=== PATIENT | female | born 1990 | race Caucasian/White ===

== ENCOUNTER 2017-05-24 20:59 | Emergency (ER) | payer MEDICAID, OTHER ==
[~2017-05-24] VITALS: Ht 162.6 cm; Wt 76.4 kg
[2017-05-24 21:04] VITALS: BP 133/90; PULSE 77; RESP 18; TEMP 97.6; O2SAT 99
[2017-05-24 21:19] VITALS: BP 114/57; PULSE 75; RESP 16; O2SAT 99
[2017-05-24 22:20] LABS: AUTOMATED NEUTROPHIL # 5.9 TH/MM3 (1.8-7.7); BASOPHIL % 0.4 % (0.0-2.0); EOSINOPHIL # 0.1 TH/MM3 (0-0.4); EOSINOPHIL % 0.7 % (0.0-4.0); HEMATOCRIT 38.5 % (35.0-46.0); HEMO FLAGS DIFF FINAL; LYMPH % 17.9 % (9.0-44.0); LYMPHOCYTE # 1.4 TH/MM3 (1.0-4.8); MEAN CELL VOLUME 82.5 FL (80.0-100.0); MEAN CORPUSCULAR HEMOGLOBIN 27.1 PG (27.0-34.0); MEAN CORPUSCULAR HGB CONC 32.9 % (32.0-36.0); PLATELET COUNT 209 TH/MM3 (150-450); RED BLOOD COUNT 4.68 MIL/MM3 (4.00-5.30); RED CELL DISTRIBUTION WIDTH 13.5 % (11.6-17.2); WHITE BLOOD COUNT 7.8 TH/MM3 (4.0-11.0)
[2017-05-24 22:28] LABS: POTASSIUM 3.4 MEQ/L (3.5-5.1)
[2017-05-24 22:31] LABS: BICARBONATE 23.4 MEQ/L (21.0-32.0)
[2017-05-24 22:57] VITALS: BP_SYST 107; BP_SYST 97; BP_DIAS 48; BP_DIAS 63; RESP 18; RESP 20
[2017-05-24 23:13] LABS: BLOOD, URINE NEG (NEG); GLUCOSE,URINE NEG (NEG); KETONE, URINE NEG (NEG); NITRITE,URINE NEG (NEG)
[2017-05-24 23:22] LABS: BACTERIA, URINE OCC /hpf; COMMENT (UR) CULT NOT INDICATED; CULTURE IF INDICATED CULT NOT INDICATED; RBC, URINE 0-3 /hpf (0-3); SQUAMOUS EPITHELIAL CELL URINE > 8 /hpf (0-5); URINE COLOR YELLOW (YELLW/STRAW)
[2017-05-24 23:52] LABS: TOTAL BILIRUBIN ADULT 0.2 MG/DL (0.2-1.0)
[2017-05-25 00:03] LABS: INDIRECT BILIRUBIN 0.1 MG/DL (0.0-0.8)
[2017-05-25] MEDS ORDERED: MACR100C2 PO (00:37)
--- NOTE | 2017-05-25 00:37 | PD ---
HPI Chief Complaint: Headache Time Seen by Provider: 21:59 Travel History International Travel<30 days: No Contact w/Intl Traveler<30days: No Traveled to known affect area: No History of Present Illness HPI 26-year-old female presents to the emergency department by private transportation for complaint of headache times one day half days. Headache began around 2 yesterday. Headache is not sudden onset not thunderclap not worst ever. Patient denies any fever sinus pressure drainage vomiting neck pain or recent respiratory illness. Patient states she is 11 weeks is 1 para 0 AB 0. Patient was recently seen in the emergency department here and diagnosed with intrauterine . 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 Patient did not contact her manager of environmental services regarding headache. Patient is taking acetaminophen. Headache is 8/10 in intensity. Patient's had no vomiting. Patient has had some nausea. Patient's had no neck stiffness or sinus pressure drainage or sore throat or visual disturbance. Patient also denies any upper extremity or lower extremity numbness tingling or weakness. Patient's had no vaginal bleeding or vaginal discharge. Patient's last acetaminophen was yesterday. Grandmother blood bedside was concerned about her blood sugar because a friend's glucometer identified her blood sugar to be 129. Patient's had no urinary frequency polyuria polydipsia or polyphagia. 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7; Ab0; nursing notes reviewed Cardiovascular Problems: Yes (PACEMAKER) Diminished Hearing: No Tetanus Vaccination: Unknown Influenza Vaccination: No ?: LMP: 19 : 1 Para: 0 Miscarriage: 0 : 0 Past Surgical History Cardiac Surgery: Yes (PACEMAKER INSERTED WHEN PT WAS 7) Pacemaker: Yes Social History Alcohol Use: No Tobacco Use: No Substance Use: No Allergies-Medications (Allergen,Severity, Reaction): Coded Allergies: adhesive (Unverified Allergy, Intermediate, Hives, 05/24/17) morphine (Unverified Allergy, Intermediate, Hives, 05/24/17) Reported Meds & Prescriptions Reported Meds & Active Scripts Active Macrobid (Nitrofurantoin Monoh/Nitrofur Macro) 100 Mg Cap 100 Mg PO BID 3 Days Review of Systems Except as stated in HPI: all other systems reviewed are Neg General / Constitutional: No: Fever, Chills HENT: Positive: Headaches, No: Congestion, Neck Stiffness, Neck Pain Cardiovascular: No: Chest Pain or Discomfort Respiratory: No: Shortness of Breath Gastrointestinal: No: Nausea, Vomiting Genitourinary: Positive: Urgency, No: Frequency, Dysuria, Pelvic Pain, Flank Pain, Discharge, Vaginal Bleeding Skin: No Rash Neurologic: Positive: Headache, No: Weakness Psychiatric: No: Anxiety Hematologic/Lymphatic: No: Lymph Node Enlargement Physical Exam Narrative GENERAL: Well-developed well-nourished female in no acute distress no respiratory distress SKIN: Warm and dry. HEAD: Atraumatic. Normocephalic. EYES: Pupils equal and round. No scleral icterus. No injection or drainage. ENT: No nasal bleeding or discharge. Mucous membranes pink and moist. NECK: Trachea midline. No JVD. No meningismus no nuchal rigidity. CARDIOVASCULAR: Regular rate and rhythm. RESPIRATORY: No accessory muscle use. Clear to auscultation. Breath sounds equal bilaterally. GASTROINTESTINAL: Abdomen soft, non-tender, nondistended. Hepatic and splenic margins not palpable. MUSCULOSKELETAL: Extremities without clubbing, cyanosis, or edema. No obvious deformities. NEUROLOGICAL: Awake and alert. No obvious cranial nerve deficits. Motor grossly within normal limits. Five out of 5 muscle strength in the arms and legs. Normal speech. PSYCHIATRIC: Appropriate mood and affect; insight and judgment normal. Data Data Last Documented VS Vital Signs Date Time Temp Pulse Resp B/P (MAP) Pulse Ox O2 Delivery O2 Flow Rate FiO2 05/24/17 22:57 74 18 107/63 (78) 78 20 97/48 (64) 05/24/17 21:19 99 Room Air 05/24/17 21:04 97.6 Orders Orders ^ Saline Lock (05/24/17 21:59) Urinalysis - C+S If Indicated (05/24/17 21:59) Orthostatic Vital Signs (05/24/17 21:59) Complete Blood Count With Diff (05/24/17 21:59) Basic Metabolic Panel (Bmp) (05/24/17 21:59) Hepatic Functional Panel (05/24/17 22:15) Sodium Chlor 0.9% 1000 Ml Inj (Ns 1000 M (05/25/17 00:45) Nitrofurantoin Monohyd Macrocr (Macrobid (05/25/17 00:45) Labs Laboratory Tests Test 05/24/17 22:15 05/24/17 22:33 White Blood Count 7.8 TH/MM3 Red Blood Count 4.68 MIL/MM3 Hemoglobin 12.7 GM/DL Hematocrit 38.5 % Mean Corpuscular Volume 82.5 FL Mean Corpuscular Hemoglobin 27.1 PG Mean Corpuscular Hemoglobin Concent 32.9 % Red Cell Distribution Width 13.5 % Platelet Count 209 TH/MM3 Mean Platelet Volume 9.3 FL Neutrophils (%) (Auto) 76.0 % Lymphocytes (%) (Auto) 17.9 % Monocytes (%) (Auto) 5.0 % Eosinophils (%) (Auto) 0.7 % Basophils (%) (Auto) 0.4 % Neutrophils # (Auto) 5.9 TH/MM3 Lymphocytes # (Auto) 1.4 TH/MM3 Monocytes # (Auto) 0.4 TH/MM3 Eosinophils # (Auto) 0.1 TH/MM3 Basophils # (Auto) 0.0 TH/MM3 CBC Comment DIFF FINAL Differential Comment Blood Urea Nitrogen 10 MG/DL Creatinine 0.56 MG/DL Random Glucose 78 MG/DL Total Protein 7.0 GM/DL Albumin 2.8 GM/DL Calcium Level 7.8 MG/DL Alkaline Phosphatase 83 U/L Aspartate Amino Transf (AST/SGOT) 15 U/L Alanine Aminotransferase (ALT/SGPT) 36 U/L Total Bilirubin 0.2 MG/DL Direct Bilirubin 0.1 MG/DL Sodium Level 136 MEQ/L Potassium Level 3.4 MEQ/L Chloride Level 105 MEQ/L Carbon Dioxide Level 23.4 MEQ/L Anion Gap 8 MEQ/L Estimat Glomerular Filtration Rate 133 ML/MIN Indirect Bilirubin 0.1 MG/DL Urine Color YELLOW Urine Turbidity SLIGHT Urine pH 7.0 Urine Specific [place] 1.012 Urine Protein NEG mg/dL Urine Glucose (UA) NEG mg/dL Urine Ketones NEG mg/dL Urine Occult Blood NEG Urine Nitrite NEG Urine Bilirubin NEG Urine Leukocyte Esterase SMALL Urine RBC 0-3 /hpf Urine WBC 6-8 /hpf Urine Squamous Epithelial Cells > 8 /hpf Urine Bacteria OCC /hpf Microscopic Urinalysis Comment CULT NOT INDICATED MDM Medical Decision Making Medical Screen Exam Complete: Yes Emergency Medical Condition: Yes Medical Record Reviewed: Yes Differential Diagnosis Cephalgia, tension headache, viral syndrome, UTI, , meningitis Narrative Course IV access obtained specimens collected and sent for resulting Patient administered acetaminophen Patient resting comfortably voicing no concerns or complaints Patient identified to have low blood pressure and given a liter of normal saline Patient is not a candidate that help syndrome or preeclampsia at 11 weeks but is encouraged to increase fluid hydration and follow-up with her observation times one day patient is aware of recommendations also identified to have abnormal urinalysis although concerning for contaminated specimen will sent for culture and sensitivity and will place on 3 days of Macrobid Diagnosis Primary Impression: Headache Qualified Codes: G44.209 - Tension-type headache, unspecified, not intractable Additional Impressions: Cystitis Qualified Codes: Z3A.11 - 11 weeks gestation of Referrals: Supervisor [employer]acing call for appointment Patient Instructions: General Instructions Med/Other Pt SpecificInfo: Prescription(s) given Scripts Nitrofurantoin Monohydrate Macrocrystals (Macrobid) 100 Mg Cap 100 MG PO BID for Infection for 3 Days, #6 CAP 0 Refills Prov: Staci Cormier MD 05/25/17 Disposition: 01 DISCHARGE HOME Staci Cormier MD May 25, 2017 00:37
[2017-05-25] MEDS ORDERED: NITROFURANTOIN MONOHYD MACROCR 100 MG CAP PO ONE (00:45)
[2017-05-25] MEDS ORDERED: SODIUM CHLOR 0.9% 1000 ML INJ 1,000 ML IV ONE (00:45)
[2017-05-25 01:01] VITALS: BP 109/64; PULSE 75; RESP 16; O2SAT 98
[2017-05-25 01:39] VITALS: BP 110/66; TEMP 98
[2017-06-07] MEDS ORDERED: ZITHTAB PO (14:09)
[2017-06-07] MEDS ORDERED: METR-1 PO (14:09)
== END 2017-05-25 01:47 | disposition home or self-care (01) ==
LOC: PHED 20:59
DX: O26.891 Other specified pregnancy related conditions, first trimester (principal); G44.209 Tension-type headache, unspecified, not intractable; O23.11 Infections of bladder in pregnancy, first trimester; Z95.0 Presence of cardiac pacemaker; Z86.79 Personal history of other diseases of the circulatory system; Z3A.11 11 weeks gestation of pregnancy
CPT/HCPCS: 80048; 80076; 81001; 85025; 96360; 99284; J7030

== ENCOUNTER 2017-07-24 10:54 | Emergency (ER) | payer MEDICAID, OTHER ==
[~2017-07-24] VITALS: Ht 162.6 cm; Wt 78.0 kg
[2017-07-24 10:55] VITALS: BP 111/61; PULSE 81; RESP 18; TEMP 98; O2SAT 100
[2017-07-24 13:00] VITALS: BP 102/55; PULSE 74; RESP 22; O2SAT 100
--- NOTE | 2017-07-24 13:00 | PD ---
HPI Chief Complaint: Cardiac Complaint Time Seen by Provider: 12:25 Travel History International Travel<30 days: No Contact w/Intl Traveler<30days: No Traveled to known affect area: No History of Present Illness HPI The patient was seen and examined in the presence of the nurse. This patient is 20 weeks and had a pacemaker placed at age 7. She developed some epigastric pain yesterday at 3 PM. She ate dinner and it didn't affect her pain at all. Today she comes for evaluation. No vomiting or diarrhea or fever. She is not short of breath. Symptoms severity is moderate. No alleviating factors. No exacerbating factors. Denies vaginal bleeding or discharge. PFSH Past Medical History Cardiovascular Problems: Yes (PACEMAKER, HEART MURMUR) Diminished Hearing: No Tetanus Vaccination: Unknown Influenza Vaccination: No ?: LMP: 03/04/17 : 1 Para: 0 Miscarriage: 0 : 0 Past Surgical History Cardiac Surgery: Yes (PACEMAKER INSERTED WHEN PT WAS 7) Pacemaker: Yes Social History Alcohol Use: No Tobacco Use: No Substance Use: No Allergies-Medications (Allergen,Severity, Reaction): Coded Allergies: adhesive (Unverified Allergy, Intermediate, Hives, 07/24/17) morphine (Unverified Allergy, Intermediate, Hives, 07/24/17) Reported Meds & Prescriptions Reported Meds & Active Scripts Active No Active Prescriptions or Reported Medications Review of Systems General / Constitutional: No: Fever Eyes: No: Visual changes HENT: No: Headaches Cardiovascular: No: Chest Pain or Discomfort Respiratory: No: Shortness of Breath Gastrointestinal: Positive: Abdominal Pain Genitourinary: No: Dysuria Musculoskeletal: No: Pain Skin: No Rash Neurologic: No: Weakness Psychiatric: No: Depression Endocrine: No: Polydipsia Hematologic/Lymphatic: No: Easy Bruising Physical Exam Narrative GENERAL: Well-nourished, well-developed patient in no apparent distress. SKIN: Focused skin assessment reveals no rash and nodules. Skin is Warm and dry. HEAD: Atraumatic. Normocephalic. EYES: Pupils equal and round. No scleral icterus. No injection or drainage. ENT: No nasal bleeding or discharge. Mucous membranes pink and moist. NECK: Trachea midline. No JVD. CARDIOVASCULAR: Regular rate and rhythm. No murmur appreciated. RESPIRATORY: No accessory muscle use. Clear to auscultation. Breath sounds equal bilaterally. GASTROINTESTINAL: Abdomen soft, mild epigastric tenderness without rebound or guarding, nondistended. Hepatic and splenic margins not palpable. MUSCULOSKELETAL: No obvious deformities. No clubbing. No cyanosis. No edema. NEUROLOGICAL: Awake and alert. No obvious cranial nerve deficits. Motor grossly within normal limits. Normal speech. PSYCHIATRIC: Appropriate mood and affect; insight and judgment normal. Data Data Last Documented VS Vital Signs Date Time Temp Pulse Resp B/P (MAP) Pulse Ox O2 Delivery O2 Flow Rate FiO2 07/24/17 14:00 74 20 109/75 (86) 100 Room Air 07/24/17 10:55 98.0 Orders Orders Electrocardiogram (07/24/17 ) Ckmb (Isoenzyme) Profile (07/24/17 12:18) Complete Blood Count With Diff (07/24/17 12:18) Comprehensive Metabolic Panel (07/24/17 12:18) Magnesium (Mg) (07/24/17 12:18) Prothrombin Time / Inr (Pt) (07/24/17 12:18) Act Partial Throm Time (Ptt) (07/24/17 12:18) Troponin I (07/24/17 12:18) Lipase (07/24/17 12:18) Us Abdomen Gallbladder (07/24/17 ) Labs Laboratory Tests Test 07/24/17 13:00 White Blood Count 8.6 TH/MM3 Red Blood Count 4.77 MIL/MM3 Hemoglobin 13.1 GM/DL Hematocrit 39.5 % Mean Corpuscular Volume 82.8 FL Mean Corpuscular Hemoglobin 27.4 PG Mean Corpuscular Hemoglobin Concent 33.1 % Red Cell Distribution Width 14.4 % Platelet Count 285 TH/MM3 Mean Platelet Volume 9.5 FL Neutrophils (%) (Auto) 81.4 % Lymphocytes (%) (Auto) 13.8 % Monocytes (%) (Auto) 4.1 % Eosinophils (%) (Auto) 0.5 % Basophils (%) (Auto) 0.2 % Neutrophils # (Auto) 7.0 TH/MM3 Lymphocytes # (Auto) 1.2 TH/MM3 Monocytes # (Auto) 0.3 TH/MM3 Eosinophils # (Auto) 0.0 TH/MM3 Basophils # (Auto) 0.0 TH/MM3 CBC Comment DIFF FINAL Differential Comment Prothrombin Time 10.0 SEC Prothromb Time International Ratio 1.0 RATIO Activated Partial Thromboplast Time 25.7 SEC Blood Urea Nitrogen 9 MG/DL Creatinine 0.63 MG/DL Random Glucose 73 MG/DL Total Protein 8.3 GM/DL Albumin 3.0 GM/DL Calcium Level 9.4 MG/DL Magnesium Level 2.1 MG/DL Alkaline Phosphatase 114 U/L Aspartate Amino Transf (AST/SGOT) 20 U/L Alanine Aminotransferase (ALT/SGPT) 22 U/L Total Bilirubin 0.2 MG/DL Sodium Level 136 MEQ/L Potassium Level 4.5 MEQ/L Chloride Level 105 MEQ/L Carbon Dioxide Level 20.6 MEQ/L Anion Gap 10 MEQ/L Estimat Glomerular Filtration Rate 116 ML/MIN Total Creatine Kinase 48 U/L Troponin I LESS THAN 0.02 NG/ML Lipase 175 U/L MDM Medical Decision Making Medical Screen Exam Complete: Yes Emergency Medical Condition: Yes Medical Record Reviewed: Yes Differential Diagnosis Biliary colic, cholecystitis, pancreatitis Narrative Course I have reviewed the patient's electronic medical record. IV placed CBC is normal metabolic profile is normal LFT's are normal lipase is normal CK is normal Troponin is normal R upper quadrant ultrasound is normal except for a scant bit of gallbladder sludge. No gallstone or gallbladder thickening or findings consistent with cholecystitis Patient will be sent up to labor and delivery to have evaluation Diagnosis Primary Impression: Epigastric abdominal pain of unknown etiology Additional Instructions: Go to labor and delivery Med/Other Pt SpecificInfo: Other Scripts No Active Prescriptions or Reported Meds Disposition: 01 DISCHARGE HOME Condition: Stable Rupesh Marcelino MD Jul 24, 2017 13:00
[2017-07-24 13:27] LABS: BASOPHIL % 0.2 % (0.0-2.0); EOSINOPHIL % 0.5 % (0.0-4.0); HEMATOCRIT 39.5 % (35.0-46.0); HEMOGLOBIN 13.1 GM/DL (11.6-15.3); LYMPH % 13.8 % (9.0-44.0); LYMPHOCYTE # 1.2 TH/MM3 (1.0-4.8); MEAN CELL VOLUME 82.8 FL (80.0-100.0); MEAN CORPUSCULAR HEMOGLOBIN 27.4 PG (27.0-34.0); MEAN CORPUSCULAR HGB CONC 33.1 % (32.0-36.0); MEAN PLATELET VOLUME 9.5 FL (7.0-11.0); MONO % 4.1 % (0.0-8.0); MONOCYTE # 0.3 TH/MM3 (0-0.9); NEUT % 81.4 % (16.0-70.0); PLATELET COUNT 285 TH/MM3 (150-450); RED BLOOD COUNT 4.77 MIL/MM3 (4.00-5.30); RED CELL DISTRIBUTION WIDTH 14.4 % (11.6-17.2); WHITE BLOOD COUNT 8.6 TH/MM3 (4.0-11.0)
[2017-07-24 13:46] LABS: ALT (GPT) 22 U/L (10-53); AST (GOT) 20 U/L (15-37); BICARBONATE 20.6 MEQ/L (21.0-32.0); BLOOD UREA NITROGEN 9 MG/DL (7-18); CALCIUM 9.4 MG/DL (8.5-10.1); CHLORIDE 105 MEQ/L (98-107); CREATININE 0.63 MG/DL (0.50-1.00); GLOMERULAR FILTRATION RATE 116 ML/MIN (>89); GLUCOSE,RANDOM 73 MG/DL (74-106); LIPASE 175 U/L (73-393); MAGNESIUM 2.1 MG/DL (1.5-2.5); SODIUM (NA) 136 MEQ/L (136-145)
[2017-07-24 13:50] LABS: ALKALINE PHOSPHATASE 114 U/L (45-117); TOTAL BILIRUBIN ADULT 0.2 MG/DL (0.2-1.0); TOTAL PROTEIN 8.3 GM/DL (6.4-8.2); TROPONIN I LESS THAN 0.02 NG/ML (0.02-0.05)
[2017-07-24 14:00] VITALS: BP 109/75; PULSE 74; RESP 20; O2SAT 100
--- NOTE | 2017-07-24 14:25 | RADRPT ---
EXAM DATE/TIME: 07/24/2017 13:45 [facility] COMPARISON: CT ABDOMEN & PELVIS W CONTRAST, October 06, 2015, 1:05. INDICATIONS : Right upper quadrant pain. MEDICAL HISTORY : Heart murmur. . Right upper qaudrant pain. SURGICAL HISTORY : Pacemaker. ENCOUNTER: Initial ACUITY: 1 day PAIN SCORE: 3/10 LOCATION: Right upper quadrant MEASUREMENTS: LIVER: 14.3 cm length COMMON DUCT: 3 mm RIGHT KIDNEY: 11.6 x 4.9 x 4.8 cm FINDINGS: LIVER: Normal echotexture without focal lesion or ductal dilatation. COMMON DUCT: No intraluminal mass or stone visualized. GALLBLADDER: Contains no stones, demonstrates no wall thickening or pericholecystic fluid. There is possible slud ge present. Battery Hand reports a negative sonographic Douglas's sign. PANCREAS: The visualized portions are within normal limits. RIGHT KIDNEY: No evidence of hydronephrosis, stone, or mass. CONCLUSION: 1. Possible gallbladder sludge. Otherwise, the gallbladder has a normal appearance. 2. Remaining findings in the right upper quadrant are within normal limits. Efrain Rehman MD on July 24, 2017 at 14:20 Board Certified Radiologist. This report was verified electronically.
[2017-07-24 15:00] VITALS: BP 109/67; PULSE 74; RESP 24; O2SAT 100
[2017-07-24 16:00] VITALS: BP 110/64; PULSE 74; RESP 18; O2SAT 100; O2SAT 19
[2017-07-24] MEDS ORDERED: PRENTAB7 (17:49)
--- NOTE | 2017-07-24 18:40 | PD ---
HPI Chief Complaint chest pain Date Seen: Jul 24, 2017 (Rio Amin MD, R3) Travel History International Travel<30 Days: No Contact w/Intl Traveler<30Days: No Known Affected Area: No (Rio Amin MD, R3) History of Present Illness HPI Ms. Heaton is a 26 yo F G1 patient of [facility] at 20 2/7 weeks GA who presents with chest pain. Patient initially evaluated at main ER; records reviewed: Patient reported epigastric pain. EKG showed ventricular paced rhythm. Troponin 1 wnl. CBC, metabolic profile wnl. LFt's wnl. Lipase wnl. CK normal. RUQ US with scant gallbladder sludge. No thickening/signs of cholecystitis. Patient reports that she has felt sternal chest pain/epigastric pain since yesterday. Pain is constant and exacerbated by palpating chest wall. Patient does not report any association with activity, shortness of breath, or lower extremity swelling. Patient does not report known heartburn. No nausea or vomiting. Patient does not report headache, dizziness, visual changes, abnormal urination, or abnormal bowel movements. Patient denies vaginal bleeding or loss of vaginal fluid. Patient does not report abdominal pain suggestive of contractions. Patient reports normal labs; she has not had 2nd trimester US yet. Regarding patient's pacemaker, patient is not sure of indication but states that she is dependent on it. Patient had initial placement at 7 yo age, replacement at 13 years due to a broken lead, and additional replacement at 19 years of age due to infection in area of pacemaker (unspecified). Patient sees a Polishing Pad Mounter in [place] for her cardiac disease; she has upcoming appointment in August. Patient also plans to establish with [facility]ounter in [facility]. : 1 (Rio Amin MD, R3) History Past Medical History Narrative Medical Unspecified arrhythmia requiring pacemaker (Rio Amin MD, R3) Obstetric History Obstetric History G1 (Rio Amin MD, R3) Past Surgical History Narrative Surgical Pacemaker placement/replacements- 7 yo , 13 yo, 19 yo (Rio Amin MD, R3) Family History Family History: Negative (Rio Amin MD, R3) Social History Alcohol Use: No Tobacco Use: No Substance Abuse: No (Rio Amin MD, R3) Allergies-Medications (Allergen,Severity, Reaction): Coded Allergies: adhesive (Unverified Allergy, Intermediate, Hives, 07/31/17) morphine (Unverified Allergy, Intermediate, Hives, 07/31/17) Home Meds Reported Medications Pnv No.95/Ferrous Fum/Folic AC ( Vitamins Tablet) 28 Mg Iron-800 Mcg Tablet 07/24/17 Physical Exam Vital Signs Date Time Temp Pulse Resp B/P (MAP) Pulse Ox O2 Delivery O2 Flow Rate FiO2 07/24/17 16:25 70 18 100 07/24/17 16:00 74 18 110/64 (79) 100 Room Air 07/24/17 15:00 74 24 109/67 (81) 100 Room Air 07/24/17 14:00 74 20 109/75 (86) 100 Room Air 07/24/17 13:00 74 22 102/55 (71) 100 Room Air 07/24/17 10:55 98.0 81 18 111/61 (78) 100 Narrative GENERAL: Well-nourished, well-developed patient. SKIN: Warm and dry. HEAD: Normocephalic and atraumatic. EYES: No scleral icterus. No injection or drainage. ENT: No nasal drainage noted. Mucous membranes pink. Airway patent. NECK: Supple, trachea midline. No JVD. CARDIOVASCULAR: Regular rate and rhythm without murmurs. Normal perfusion RESPIRATORY: CTAB; normal rate ABDOMEN/GI: Abdomen soft, non-tender, bowel sounds present, no rebound, no guarding Gravid GENITOURINARY: Uterine Contractions: None on CTG FHT's: FHR 130 EXTREMITIES: No cyanosis or edema. BACK: Nontender without obvious deformity. No CVA tenderness. NEUROLOGICAL: Awake and alert. Motor and sensory function grossly within normal limits. (Rio Amin MD, R3) Data Data Orders Orders Electrocardiogram (07/24/17 ) Ckmb (Isoenzyme) Profile (07/24/17 12:18) Complete Blood Count With Diff (07/24/17 12:18) Comprehensive Metabolic Panel (07/24/17 12:18) Magnesium (Mg) (07/24/17 12:18) Prothrombin Time / Inr (Pt) (07/24/17 12:18) Act Partial Throm Time (Ptt) (07/24/17 12:18) Troponin I (07/24/17 12:18) Lipase (07/24/17 12:18) Us Abdomen Gallbladder (07/24/17 ) Ed Discharge Order (07/24/17 15:09) Labs Laboratory Tests Test 07/24/17 13:00 White Blood Count 8.6 Red Blood Count 4.77 Hemoglobin 13.1 Hematocrit 39.5 Mean Corpuscular Volume 82.8 Mean Corpuscular Hemoglobin 27.4 Mean Corpuscular Hemoglobin Concent 33.1 Red Cell Distribution Width 14.4 Platelet Count 285 Mean Platelet Volume 9.5 Neutrophils (%) (Auto) 81.4 Lymphocytes (%) (Auto) 13.8 Monocytes (%) (Auto) 4.1 Eosinophils (%) (Auto) 0.5 Basophils (%) (Auto) 0.2 Neutrophils # (Auto) 7.0 Lymphocytes # (Auto) 1.2 Monocytes # (Auto) 0.3 Eosinophils # (Auto) 0.0 Basophils # (Auto) 0.0 CBC Comment DIFF FINAL Differential Comment Prothrombin Time 10.0 Prothromb Time International Ratio 1.0 Activated Partial Thromboplast Time 25.7 Blood Urea Nitrogen 9 Creatinine 0.63 Random Glucose 73 Total Protein 8.3 Albumin 3.0 Calcium Level 9.4 Magnesium Level 2.1 Alkaline Phosphatase 114 Aspartate Amino Transf (AST/SGOT) 20 Alanine Aminotransferase (ALT/SGPT) 22 Total Bilirubin 0.2 Sodium Level 136 Potassium Level 4.5 Chloride Level 105 Carbon Dioxide Level 20.6 Anion Gap 10 Estimat Glomerular Filtration Rate 116 Total Creatine Kinase 48 Troponin I LESS THAN 0.02 Lipase 175 (Rio Amin MD, R3) MDM Medical Record Reviewed: Yes Narrative Course / MDM 26 yo F G1 patient of [facility] at 20 2/7 weeks GA who presents with chest pain. IUP at 20 2/7 weeks -Normal FHR -No contractions on CTG -F/U with [facility] in the next 1-2 weeks Chest pain Impression: Ventricular paced rhythm; normal troponin, normal CBC. No cough or SOB to suggest pulmonary etiology. Possible reflux associated with ? MSK etiology also likely due to pain with palpation -Recommended to patient that she follow-up with Cardiology in near future due to history of arrhythmia requiring pacemaker -Will try to coordinate for patient through [facility] referral -Recommended trial of Tums for possible GERD -Patient agrees to return to OB ED with any worsening chest pain or new symptoms. (Rio Amin MD, R3) Diagnosis Diagnosis: Primary Impression: Epigastric abdominal pain of unknown etiology Disposition: 01 DISCHARGE HOME Condition: Stable Patient Instructions: General Instructions, Epigastric Pain (ED) Additional Instructions: Go to labor and delivery Departure Forms: Tests/Procedures Collaborating MD Comments Agree with extensive workup by Dr Amin today. Discharge home. (Maritza Shea MD) Rio Amin MD, R3 Jul 24, 2017 18:40 Maritza Shea MD Aug 01, 2017 23:07
--- NOTE | 2017-07-25 11:10 | EKG ---
Date Performed: 07/24/2017 Time Performed: 11:10:55 PTAGE: 26 years EKG: ELECTRONIC VENTRICULAR PACEMAKER ABNORMAL RHYTHM ECG PREVIOUS TRACING : 07/24/2017 10.22 DOCTOR: Josse Mott Interpretating Date/Time 07/25/2017 11:10:01
== END 2017-07-24 19:01 | disposition home or self-care (01) ==
LOC: HOBED 10:54 → NEPE 16:27 → HOBED 16:27
DX: O26.892 Other specified pregnancy related conditions, second trimester (principal); R10.13 Epigastric pain; Z3A.20 20 weeks gestation of pregnancy; Z95.0 Presence of cardiac pacemaker
CPT/HCPCS: 76705; 80053; 82550; 83690; 83735; 84484; 85025; 85610; 85730; 93005; 99284

== ENCOUNTER → 2017-08-15 | Outpatient (CLI) | payer MEDICAID, OTHER ==
[~2017-08-15] MED LIST: PRENTAB7
== END ==
LOC: HPND 07-11 08:41
PROVIDERS: ATTEND Obstetrics & Gynecology
DX: O35.2XX0 Maternal care for (suspected) hereditary disease in fetus, not applicable or unspecified (principal)
CPT/HCPCS: 76811; 76825; 76827; 93325

== ENCOUNTER 2017-08-23 13:03 | Emergency (ER) | payer MEDICAID ==
--- NOTE | 2017-08-23 14:07 | PD ---
HPI Chief Complaint umbilical pain Date Seen: Aug 23, 2017 Time Seen: 14:00 Travel History International Travel<30 Days: No Contact w/Intl Traveler<30Days: No Known Affected Area: No History of Present Illness HPI 26y/o G1 @ 24.4wks. She has PNC with [facility]. She presents today for evaluation of umbilical pain. She states that it started this morning and has continued. It is constant and also is located below the umbilicus. No ctx, LOF , VB. +FM. No dysuria. Weeks Gestation: 24 Para: 0 : 1 History Past Medical History Narrative Medical h/o VSD and arrythmia s/p pacemaker placement Medical History: Denies Significant Hx Past Surgical History Narrative Surgical h/o VSD and arrythmia s/p pacemaker placement Family History Family History: Negative Social History Alcohol Use: No Tobacco Use: No Substance Abuse: No Allergies-Medications (Allergen,Severity, Reaction): Coded Allergies: adhesive (Unverified Allergy, Intermediate, Hives, 07/31/17) morphine (Unverified Allergy, Intermediate, Hives, 07/31/17) Home Meds Reported Medications Pnv No.95/Ferrous Fum/Folic AC ( Vitamins Tablet) 28 Mg Iron-800 Mcg Tablet 07/24/17 Review of Systems Except as stated in HPI: all other systems reviewed are Neg Physical Exam Narrative General: well developed, well nourished, no acute distress HEENT: normocephalic atraumatic, extraocular movements intact, neck supple Abdomen: soft, gravid, nontender, nondistended Uterus: fundus at umbilicus, nontender Extremities: full range of motion Skin: normal coloration, no rashes, no suspicious skin lesions noted Neurologic: cranial nerves 2-12 grossly intact, normal muscle tone, normal gait Psychiatric: normal mood and affect, appropriate FHTs: age appropriate tracing, 130s, +accels, +variable decel x1, moderate variability [place]: quiet Data Data Vital Signs Reviewed: Yes Orders Orders Vital Signs (Adult) .ON ADMISSION (08/23/17 13:59) ^ Labor Status (08/23/17 13:59) Urinalysis - C+S If Indicated (08/23/17 13:59) ^ Non Stress Test (08/23/17 13:59) Ed Discharge Order (08/23/17 13:59) MDM Plan 26y/o G1 @ 24.4wks with umbilical pain -- +FHTs, toco quiet -- no evidence of UTI -- non-tender on exam -- no h/o intra-abdominal sx to suggest adhesive dz -- no s/s of appendicitis Dispo: stable for d/c home with precautions Diagnosis Diagnosis: Primary Impression: 24 weeks gestation of Additional Impression: Abdominal pain Patient Instructions: General Instructions Departure Forms: Tests/Procedures Manjeet Cardenas MD Aug 23, 2017 14:07
[2017-08-23 14:36] LABS: BACTERIA, URINE OCC /hpf; BILIRUBIN, URINE NEG (NEG); BLOOD, URINE NEG (NEG); GLUCOSE,URINE NEG (NEG); KETONE, URINE NEG (NEG); NITRITE,URINE NEG (NEG); SQUAMOUS EPITHELIAL CELL URINE 10 /hpf (0-5); URINE COLOR LIGHT-YELLOW (YELLW/STRAW); URINE LEUKOCYTE ESTERASE LARGE (NEG)
== END 2017-08-23 14:11 | disposition home or self-care (01) ==
LOC: HOBED 13:03
DX: O26.892 Other specified pregnancy related conditions, second trimester (principal); R10.33 Periumbilical pain; Z3A.24 24 weeks gestation of pregnancy; Z88.5 Allergy status to narcotic agent
CPT/HCPCS: 81001; 99283

== ENCOUNTER 2017-09-27 19:25 | Emergency (ER) | payer MEDICAID ==
[~2017-09-27] VITALS: Ht 162.6 cm; Wt 79.4 kg
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
== END 2017-09-27 20:42 | disposition home or self-care (01) ==
LOC: HOBED 19:25
DX: Z04.1 Encounter for examination and observation following transport accident (principal); O26.893 Other specified pregnancy related conditions, third trimester; R10.2 Pelvic and perineal pain; Z3A.29 29 weeks gestation of pregnancy
CPT/HCPCS: 99283